=== PATIENT | female | born 1960 | race Caucasian/White ===

== ENCOUNTER → 2022-07-27 | Day surgery (SDC) | payer MEDICARE, OTHER ==
[~2022-07-27] VITALS: Ht 165.1 cm; Wt 102.0 kg
[~2022-07-27] MED LIST: AMITRIPTYLINE H10 MG PO; ATENOLOL25 MG PO; GABAPENTIN600 MG PO; GABAPENTIN800 MG PO; HYDROCODON-ACE1 EAC2 PO; LEXAPRO 10MG TA10 MG PO; NORCO 5/3251 EACH PO; PANTOPRAZOLE SO40 MG PO; SPIRONOLACTONE25 M1 PO; TIZANIDINE HCL4 MG PO; TRAZODONE 100M100 MG PO; VOLTAREN ARTHRI20 GM TOP
[2022-07-27 06:40] LABS: HCT 36.9 % (37.0-47.0); HGB 11.9 g/dl (12.5-16.0); MCH 31.3 pg (25.0-31.0); MCHC 32.2 g/dL (32.0-36.0); MCV 97.1 fL (78.0-100.0); MPV 10.6 fL (6.0-9.5); RBC 3.8 M/uL (4.20-5.40); RDW 13.9 % (11.5-14.0); WBC 5.9 K/uL (4.0-10.5)
[2022-07-27 07:00] LABS: ALBUMIN 3.4 g/dL (3.4-5.0); BILIRUBIN - TOTAL 0.4 mg/dL (0.2-1.0); BUN/CREAT RATIO (CALC) 14.4 RATIO; CREATININE 1.32 mg/dL (0.51-0.95); GLOBULIN (CALCULATION) 3.5 g/dL; POTASSIUM 4.4 mmol/L (3.5-5.1); TOTAL PROTEIN 6.9 g/dL (6.4-8.2)
== END | disposition home or self-care (01) ==
LOC: FAS 06:05
PROVIDERS: Orthopaedic Surgery
DX: M65.341 Trigger finger, right ring finger (principal); M65.342 Trigger finger, left ring finger; K21.9 Gastro-esophageal reflux disease without esophagitis; I12.9 Hypertensive chronic kidney disease with stage 1 through stage 4 chronic kidney disease, or unspecified chronic kidney disease; N18.30 Chronic kidney disease, stage 3 unspecified; Z79.899 Other long term (current) drug therapy; Z88.2 Allergy status to sulfonamides
CPT/HCPCS: 36415; 80053; 93005; J1040; J2250; J2704; J3010; J7120